=== PATIENT | male | born 1990 | race Two or more races ===

== ENCOUNTER 2020-02-08 04:54 | Emergency (ER) | payer MEDICAID ==
[~2020-02-08] VITALS: Ht 180.3 cm; Wt 104.3 kg
[2020-02-08 05:10] VITALS: BP 139/87
== END 2020-02-08 06:44 | disposition left against medical advice (07) ==
LOC: ER 04:54
DX: R51 Headache (principal); Z53.21 Procedure and treatment not carried out due to patient leaving prior to being seen by health care provider